=== PATIENT | female | born 1995 | race Caucasian/White ===

== ENCOUNTER 2016-10-29 20:35 | Inpatient (IN) | payer OTHER ==
[2016-10-29] MEDS ORDERED: NS 1,000 ML IV ONE ×3 (20:40→22:23)
--- NOTE | 2016-10-29 21:00 | EDPHY ---
H & P HPI/ROS: CHIEF COMPLAINT: Trauma HISTORY OF PRESENT ILLNESS: The patient is a 20-year-old female who comes to the emergency department after falling off for skateboard. Her friend states that she appeared to faint and then fall off of her skateboard without catching herself after which she had convulsions for up to 30 seconds. No known history of seizure. She is complaining of an abrasion to her left shoulder. She was able to ambulate for EMS and conversing. On arrival here she tells us to leave her alone and is not cooperative with exam. REVIEW OF SYSTEMS: Constitutional: denies: chills, fever, recent illness, recent injury EENTM: denies: blurred vision, double vision, nose congestion Respiratory: denies: cough, shortness of breath Cardiac: denies: chest pain, irregular heart rate, lightheadedness, palpitations Gastrointestinal/Abdominal: denies: abdominal pain, diarrhea, nausea, vomiting, blood streaked stools Genitourinary: denies: dysuria, frequency, hematuria, pain Musculoskeletal: denies: joint pain, muscle pain Skin: denies: lesions, rash, jaundice, bruising Neurological: denies: headache, numbness, paresthesia, tingling, dizziness, weakness Hematologic/Lymphatic: denies: blood clots, easy bleeding, easy bruising Immunologic/allergic: denies: HIV/AIDS, transplant Nursing assessment reviewed Vital signs reviewed normal Patient is somnolecent, answers questions, not cooperative c-collar in place, HEAD: shows no evidence of trauma no raccoon eyes, no Peñaloza sign. NECK: Unable to assess, trachea is midline, EYES: pupils equal round 4+ reactive to light and accommodating, extraocular muscles are intact no palsy or entrapment, no subconjunctival hemorrhage ENT: Abrasion to left side of forehead and cheek, small abrasion on upper lip, airway intact, no dental or oral injuries, no clotted nasal blood, no septal hematoma, no hemotympanum CARDIOVASCULAR: heart sounds normal, not tachycardic or bradycardic, Chest is non-tender no rib tenderness no palpable fracture, no crepitus, no subcutaneous emphysema RESPIRATORY: no splinting, no paradoxical movements, gross sounds normal, no wheezes no rales no rhonchi, no respiratory distress ABDOMEN: Abdomen is nontender in all 4 quadrants no guarding no rebound, no distention, no hernias, no masses or bruits. GENITAL/RECTAL: Normal external inspection, Stable pelvis NEUROLOGIC/PSYCH: Oriented x3, cranial nerves normal as assessed, face symmetrical, sensation normal, motor grossly normal, not perseverating, cranial nerves II through XII intact normal reflexes [place] Coma score: 13 EYES to voice 3 SPEECH disoriented 4 MOTOR normal 6 SKIN: Intact, warm, dry, no ecchymosis, no lacerations, nondiaphoretic. BACK: No CVA tenderness, no vertebral point tenderness, no muscle spasm normal range of motion EXTREMITIES: Abrasion to knuckles of both hands and left shoulder pelvis stable , but painful. no pulse deficit, normal range of motion, normal color and temperature Source: Patient Exam Limitations: No limitations - Medical/Surgical History Hx Asthma: No Hx Chronic Respiratory Disease: No Hx Diabetes: No Hx Cardiac Disease: No Hx Renal Disease: No Hx Cirrhosis: No Hx Alcoholism: No - Family History Significant Family History: No pertinent family hx - Social History Alcohol Use: Sober Drug Use: None Constitutional: Initial Vital Signs Temperature (C) 36.4 C 10/29/16 20:40 Heart Rate 98 10/29/16 20:40 Respiratory Rate 16 10/29/16 20:40 Blood Pressure 131/86 H 10/29/16 20:40 O2 Sat (%) 98 10/29/16 20:40 O2 Delivery Mode Room Air Allergies/Adverse Reactions: No Known Allergies Allergy (Unverified 10/29/16 22:19) Home Medications: Medication Instructions Recorded Citalopram [CeleXA] 20 mg PO DAILY 10/30/16 Norgestimate-Ethinyl Estradiol 1 each PO DAILY 10/30/16 [Sprintec] Medical Decision Making - Diagnostics Imaging: Discussed imaging studies w/ rn call center Radiologist Procedures: Intubation: emergent intubation. While manually bagging the patient and maintaining the airway, The patient was sedated with 20 mg of Etomidate and paralyzed with 100 mg of succinylcholine. A 7.5 endotracheal tube was placed using the Glidescope. It was placed at 21 cm at the teeth. Placement was confirmed by direct visualization, good color change, and bilateral breath sounds with absent gastric sounds. Chest x-ray is pending. Saturations improved significantly and the procedure was successful. ED Course/Re-evaluation: The patient's friend has arrived who was with her. He states that he was riding behind her on the long board when she seem to go limp and fall forward. She collapsed to the ground without catching herself. She then seized for about 30 seconds. He states that she was slightly confused when she woke but kept saying that her head hurt. 10:20 p.m. I spoke with Wilder Vega who is in a or and will have Dr. Garsia evaluate. He does recommend Keppra. 10:25 p.m. I discussed the case with Dr. Andrés Jhaveri who will admit to the ICU. Mom is in the room. She is a nurse and understands the plan. 10:57 p.m. the patient's GCS is declining. She is still maintaining airway. Dr. Jhaveri is evaluating and will order a repeat CT scan. Patient vomited and became incontinent. We intubated her. Differential Diagnosis: Partial list of the Differential diagnosis considered include but were not limited to; intracranial hemorrhage, concussion, cervical spine injury, abrasion and although unlikely based on the history and physical exam, I also considered torso injury, tumor. Critical Care Time: Critical care time spent by me, Dr. Bauer exclusive with this patient was 45 minutes, exclusive of the PA time exclusive of procedures. The organ system that was at risk was neurologic and I gave emergency workup, imaging, consultation and admission to prevent worsening of the patient's condition - Data Points Laboratory Results: Laboratory Results 10/29/16 21:00 10/29/16 21:00 Medications Given: Discontinued Medications Diazepam (Valium Injection) 5 mg IVP EDNOW ONE Stop: 10/29/16 23:26 Last Admin: 10/30/16 02:30 Dose: Not Given Etomidate (Etomidate) 20 mg IVP ONCE ONE Stop: 10/29/16 23:10 Last Admin: 10/29/16 23:10 Dose: 20 mg Sodium Chloride (Ns) 1,000 mls @ 0 mls/hr IV ONCE ONE PRN Reason: Wide Open Stop: 10/29/16 20:50 Last Admin: 10/29/16 21:05 Dose: 1,000 mls Levetiracetam 500 mg/ Sodium (Chloride) 105 mls @ 420 mls/hr IV EDNOW ONE Stop: 10/29/16 22:37 Last Admin: 10/29/16 22:55 Dose: 105 mls Sodium Chloride (Ns) 1,000 mls @ 0 mls/hr IV ONCE ONE PRN Reason: Wide Open Stop: 10/29/16 22:24 Last Admin: 10/29/16 22:25 Dose: 1,000 mls Ondansetron HCl (Zofran) 4 mg IVP EDNOW ONE Stop: 10/29/16 22:39 Last Admin: 10/29/16 22:40 Dose: 4 mg Propofol (Diprivan) 40 mg IVP EDNOW ONE Stop: 10/29/16 23:46 Last Admin: 10/29/16 23:45 Dose: 40 mg Succinylcholine Chloride (Quelicin) 100 mg IVP ONCE ONE Stop: 10/29/16 23:10 Last Admin: 10/29/16 23:11 Dose: 100 mg Departure - Departure Disposition: [facility] Acute Clinical Impression: Intracranial hemorrhage, Subdural hemorrhage Condition: Critical
[2016-10-29 21:43] LABS: % IMMATURE GRANULYOCYTES 0.4 % (0.0-1.1); ABSOLUTE IMMATURE GRANULOCYTES 0.05 10^3/uL (0.00-0.10); ADD DIFF? NO; ADD MORPH? NO; ADD SCAN? NO; ATYPICAL LYMPHOCYTE FLAG 10 (0-99); FRAGMENT RBC FLAG 0 (0-99); HEMATOCRIT 40.1 % (38.0-47.0); HEMOGLOBIN 14.3 g/dL (12.6-16.3); LEFT SHIFT FLG 0 (0-99); LIPEMIA HEMOLYSIS FLAG 90 (0-99); MEAN CELL HEMOGLOBIN 29.5 pg (27.9-34.1); MEAN CELL HEMOGLOBIN CONCENTR. 35.7 g/dL (32.4-36.7); MEAN CELL VOLUME 82.7 fL (81.5-99.8); MEAN PLATELET VOLUME 10.7 fL (8.7-11.7); PLATELET CLUMPS FLAG 10 (0-99); PLATELET COUNT 380 10^3/uL (150-400); RED BLOOD CELL COUNT 4.85 10^6/uL (4.18-5.33)
[2016-10-29 21:52] LABS: ANION GAP 12 mEq/L (8-16); CALCIUM 9.8 mg/dL (8.5-10.4); CARBON DIOXIDE 20 mEq/l (22-31); CHLORIDE 108 mEq/L (97-110); CREATININE 0.7 mg/dL (0.6-1.0); ETHANOL SERUM < 10 mg/dL (0-10); GLOMERULAR FILTRATION RATE > 60; GLUCOSE 116 mg/dL (70-100); POTASSIUM 3.6 mEq/L (3.5-5.2); SODIUM 140 mEq/L (134-144)
[2016-10-29 22:04] LABS: APTT 23.2 SEC (23.0-38.0); INR 0.99 (0.83-1.16)
[2016-10-29] MEDS ORDERED: ONDANSETRON 4 MG/2 ML VIAL ONE (22:17)
[2016-10-29] MEDS ORDERED: levETIRAcetam 500 MG in NS 100 ML IV ONE (22:23)
[2016-10-29] MEDS ORDERED: fentaNYL/NACL 100 ML IV SCH (22:30)
[2016-10-29] MEDS ORDERED: ONDANSETRON 4 MG/2 ML VIAL IVP ONE (22:38)
[2016-10-29] MEDS ORDERED: NALOXONE HCL 0.4 MG/ML INJ IVP PRN (23:06)
[2016-10-29] MEDS ORDERED: LORazepam 2 MG/ML INJ IVP PRN (23:06)
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
[2016-10-29] MEDS ORDERED: PROPOFOL/EMULSION 1,000 MG/100 ML BOTTLE IV ONE (23:07)
[2016-10-29] MEDS ORDERED: SUCCINYLCHOLINE CHLORIDE 200 MG/10 ML VIAL IVP ONE (23:09)
[2016-10-29] MEDS ORDERED: ETOMIDATE 20 MG/10 ML VIAL IVP ONE (23:09)
[2016-10-29] MEDS ORDERED: PROPOFOL/EMULSION 100 ML IV SCH (23:20)
[2016-10-29] MEDS ORDERED: DIAZEPAM 10 MG/2 ML SYR IVP ONE (23:25)
[2016-10-29] MEDS ORDERED: DIAZEPAM 10 MG/2 ML SYR ONE (23:27)
[2016-10-29] MEDS ORDERED: NOREPINEPHRINE/NS 500 ML IV SCH (23:30)
[2016-10-29] MEDS ORDERED: PROPOFOL 200 MG/20 ML VIAL IVP ONE (23:45)
[2016-10-30] MEDS ORDERED: ETOMIDATE 40 MG/20 ML INJ ONE (00:01)
[2016-10-30] MEDS ORDERED: SUCCINYLCHOLINE CHLORIDE*ANESTHESIA ONLY*200 MG/10 ML SYR IVP ONE (00:02)
[2016-10-30] MEDS ORDERED: fentanYL/NACL/100 ML BAG IV ONE (01:00)
[2016-10-30] MEDS ORDERED: PROPOFOL/EMULSION 1,000 MG/100 ML BOTTLE IV ONE (01:00)
[2016-10-30 01:35] LABS: CALCULATED OXYGEN SATURATION 100 % (92-95); O2 CONCENTRATIION 100 % (0-100)
[2016-10-30] MEDS: FAMOTIDINE 20 MG/NACL 50 ML IV SCH ×3 (02:30→20:52)
[2016-10-30] MEDS: PROPOFOL/EMULSION 100 ML IV SCH ×2 (02:31→07:04)
[2016-10-30 03:08] LABS: CALCULATED OXYGEN SATURATION 100 % (92-95); O2 CONCENTRATIION 50 % (0-100)
--- NOTE | 2016-10-30 03:09 | SOAPPROG ---
Downtime Inpatient MD Late Entry SOAP Note: Initial ABG shows pC02 of 27/discussed with patients ERINN Clayton will decrease tidal vol/rate and repeat ABG. We discussed target range for pC02 of 35-40.
[2016-10-30 03:54] LABS: BASE EXCESS -5.1 mEq/L (-2.5-2.5); BICARBONATE 20 mEq/L (22-26); MEASURED OXYGEN SATURATION 99 % (92-95); PCO2 39 mmHg (34-38); PO2 149 mmHg (65-75); TCO2 21 mEq/L (23-27)
[2016-10-30 03:55] LABS: END TIDAL CO2 63; O2 CONCENTRATIION 40 % (0-100); P/F RATIO 373 RATIO; PATIENT RATE 10; PRESSURE SUPPORT 7; SIMV YES
[2016-10-30 06:19] LABS: ANION GAP 8 mEq/L (8-16); CALCIUM 8.3 mg/dL (8.5-10.4); CARBON DIOXIDE 22 mEq/l (22-31); CHLORIDE 109 mEq/L (97-110); CREATININE 0.6 mg/dL (0.6-1.0); GLOMERULAR FILTRATION RATE > 60; GLUCOSE 110 mg/dL (70-100); SODIUM 139 mEq/L (134-144)
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
[2016-10-30] MEDS: BACITRACIN ZINC 14.2 GM OINTTUBE TP SCH ×2 (08:14→20:52)
[2016-10-30] MEDS: levETIRAcetam 500 MG in NS 100 ML IV SCH ×2 (08:46→20:52)
[2016-10-30 08:56] LABS: BICARBONATE 21 mEq/L (22-26); MEASURED OXYGEN SATURATION 99 % (92-95); PCO2 41 mmHg (34-38); PO2 157 mmHg (65-75); TCO2 22 mEq/L (23-27)
[2016-10-30 08:57] LABS: O2 CONCENTRATIION 40 % (0-100); P/F RATIO 393 RATIO; PATIENT RATE 17; PRESSURE SUPPORT 7; SIMV YES
--- NOTE | 2016-10-30 09:18 | SOAPPROG ---
SOAP Progress Note Assessment/Plan: Assessment: 20 y/o with CHI, small SDH, small contusions and decline in mental status. Ventriculostomy placed last pm -ICP 12-14 overnight, ventric functioning open at 10 -repeat CT this morning stable -exam improved ok to wean to extubate per trauma -Continue Q1 hour neuro checks, wean sedation as tolerated -call for change in neuro status 10/30/16 09:19 Subjective: Exam improved, Will follow commands briskly when sedation off, no new events overnight Objective: Vital Signs Temp Pulse Resp BP Pulse Ox 38.3 C 68 14 112/45 L 100 10/30/16 09:00 10/30/16 09:00 10/30/16 09:00 10/30/16 09:00 10/30/16 09:00 Laboratory Results 10/30/16 05:45 10/29/16 10/30/16 10/31/16 05:59 05:59 05:59 Intake Total 592 Output Total 954 75 Balance -362 -75 PT 13.0 SEC (12.0-15.0) 10/29/16 21:00 INR 0.99 (0.83-1.16) 10/29/16 21:00 sedated, PERRL, no facial asymmetry, briskly localizes bilateally, per nursing will briskly follow commands when sedation fully weaned, MAEWx 4, ventric c/d/i - Pending Discharge Pending Discharge Within 24 Hours: No Pending Discharge Within 48 Hours: No ICD10 Worksheet Patient Problems: Problems Problem Status Onset Intracranial hemorrhage Acute Subdural hemorrhage Acute
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
--- NOTE | 2016-10-30 14:14 | GCON ---
[f rep st] CONSULTATION PULMONARY/CRITICAL CARE CONSULTATION DATE OF CONSULTATION: 10/30/2016 REFERRING PHYSICIAN: Andrés Jhaveri MD REASON FOR REFERRAL: Evaluation and management of acute respiratory failure requiring intubation an d mechanical ventilation. HISTORY: The patient is a 20-year-old woman, who was brought into the emergency department followin g a skateboarding accident. She was apparently unhelmeted and had a loss of consciousness after the accident. History taken from her boyfriend who witnessed her fall, suggests that she may have lost consciousness prior to the accident. Upon arrival to the emergency department, she was found to de leon ve a [place] Coma Scale of 13 and had an occipital fracture and right subdural. In the emergency de partment, she had an episode of vomiting and fecal incontinence, as well as decline in mental status . She was then intubated due to inability to protect her airway. A ventriculostomy drain was place d by Dr. Coelho. PAST MEDICAL HISTORY: History of depression. MEDICATIONS: At the time of admission include possibly Paxil and oral contraceptives. ALLERGIES: None. 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 Her mother is an RN. She does not smoke, drink, or us e other drugs. FAMILY HISTORY: Unremarkable. REVIEW OF SYSTEMS: Unobtainable. PHYSICAL EXAMINATION: GENERAL: The patient is intubated. She was sedated with propofol and fentan yl but those have been discontinued and she is starting to wake up. She follows some simple command s but is not very persistent. VITAL SIGNS: Blood pressure is 114/48 with a heart rate of 68. She is afebrile. Oxygen saturations are 95% to 100%. HEENT: The patient has some ecchymoses, as well as ventriculostomy drain. Gaze is conjugate. NECK: A hard cervical collar is in place. CHEST: Cl ear to auscultation. CARDIAC: Regular rate and rhythm without murmur. ABDOMEN: Soft, nontender. Bowel sounds are present. EXTREMITIES: No clubbing, cyanosis, or edema. She has some abrasions o n her hands. NEUROLOGIC: The patient is sedated but arousable and follows simple commands. She is able to move all extremities. LABORATORY DATA: Chemistry group is normal. Beta hCG is negative. CBC is remarkable for a white b lood count of 13.9. An arterial blood gas shows a pH of 7.33 with a pO2 of 157,a CO2 of 41, and a b icarbonate of 22 on IMV at a rate of 12 with an actual rate of 17, a tidal volume of 450 and 40% oxy gen. Ethyl alcohol level is less than 10. Chest x-ray shows some possible left basilar edema/atelectasis. The endotracheal tube is in the david ropriate position. Images reviewed. CT scan of the head from October 29 shows a nondisplaced occipital skull fracture with a subarachnoid he morrhage and a tiny subdural hematoma on the right. This is stable on subsequent imaging. Images r eviewed. ASSESSMENT: 1. Acute respiratory failure. This is due to altered mental status and inability to protect her ai rway. The patient appears to have improved, and she has come off sedation. 2. Intracranial hemorrhage, status post ventriculostomy drain. 3. Occipital skull fracture. PLAN: 1. We will check weaning parameters and consider extubation. 2. Continue with tracheostomy drain per Dr. Coelho. 3. Speech therapy for cognitive and swallow evaluations once the patient is extubated. /[id number]/MODL
[2016-10-30] MEDS: ONDANSETRON 4 MG/2 ML VIAL IVP PRN (15:54)
[2016-10-30 16:07] LABS: ANION GAP 8 mEq/L (8-16); CALCIUM 8.7 mg/dL (8.5-10.4); CARBON DIOXIDE 22 mEq/l (22-31); CHLORIDE 109 mEq/L (97-110); CREATININE 0.6 mg/dL (0.6-1.0); GLOMERULAR FILTRATION RATE > 60; GLUCOSE 114 mg/dL (70-100); POTASSIUM 3.9 mEq/L (3.5-5.2); SODIUM 139 mEq/L (134-144)
[2016-10-30] MEDS: NS 1,000 ML IV SCH (17:32)
[2016-10-30 23:21] LABS: ANION GAP 7 mEq/L (8-16); CALCIUM 8.6 mg/dL (8.5-10.4); CARBON DIOXIDE 21 mEq/l (22-31); CHLORIDE 109 mEq/L (97-110); CREATININE 0.5 mg/dL (0.6-1.0); GLOMERULAR FILTRATION RATE > 60; GLUCOSE 110 mg/dL (70-100); SODIUM 137 mEq/L (134-144)
--- NOTE | 2016-10-31 07:30 | NEUSURGPN ---
Assessment/Plan: Assessment: 20 y/o with CHI, small SDH, small contusions and decline in mental status. Ventriculostomy placed -ICP running about 12-15 overnight, ventric functioning open at 10 -repeat CT yesterday was stable -extubated -Continue Q1 hour neuro checks -PT/OT/ELECTRIC POWERLINE EXAMINER, encourage up and OOB -D/w Dr Coelho -call for change in neuro status Subjective: Pt resting in bed, boyfriend at bedside. Sleeping but awakens easily. Objective: NAD VSS oriented to person, place, time - thought today was sunday MAEx4 No droop EOMi Motor / BUE/BLE Follows all commands Ventric catheter in place cdi Urinary Catheter in Place: Yes Urinary Catheter Indication: Other (Use Comment) (to be removed today once ambulatory) Catheter Insertion Date: 10/30/16 - Physician Discussed Patient with : Meliton Neurosurgery Physical Exam - Vitals, I&O, Labs I and O 10/30/16 10/31/16 11/01/16 05:59 05:59 05:59 Intake Total 592 2358 Output Total 954 1698 30 Balance -362 660 -30 Weight 68 kg Intake: IV Infused (ml) 592 2358 Famotidine 20 mg/NaCl 50 50 ml @ 200 mls/hr IV Q12HRS JIMMY Rx#:[id number] Ns 1,000 ml @ 100 mls/hr 360 2150 IV CONT JIMMY Rx#: [id number] Propofol/Emulsion 100 ml 128 73 @ Titrate IV CONT JIMMY Rx# :[id number] fentaNYL/NACL 100 ml @ 54 30 Per Protocol IV CONT JIMMY Rx#:[id number] levETIRAcetam 500 mg In 105 Ns 100 ml @ 420 mls/hr IV BID JIMMY Rx#:[id number] Output: Urine (ml) 800 1300 Catheter 800 1300 OG Drainage (ml) 100 Large Bore (>12 Dutch) 100 Non-weighted Stomach CSF Drainage Amount 54 398 30 Right Ventriculostomy 54 398 30 Other: Number of Stools Catheter 1 Vital Signs Temp Pulse Resp BP Pulse Ox 38.0 C 57 L 18 124/56 H 92 10/31/16 07:00 10/31/16 07:00 10/31/16 07:00 10/31/16 07:00 10/31/16 07:00 Laboratory Results 10/30/16 22:10 ICD10 Worksheet Patient Problems: Problems Problem Status Onset Intracranial hemorrhage Acute Subdural hemorrhage Acute
[2016-10-31] MEDS: levETIRAcetam 500 MG in NS 100 ML IV SCH ×2 (08:33→20:36)
[2016-10-31] MEDS: BACITRACIN ZINC 14.2 GM OINTTUBE TP SCH ×2 (08:34→20:12)
[2016-10-31] MEDS: FAMOTIDINE 20 MG/NACL 50 ML IV SCH ×2 (08:34→20:11)
[2016-10-31] MEDS: NS 1,000 ML IV SCH ×2 (08:39→23:17)
--- NOTE | 2016-10-31 09:35 | PDINTPN ---
[employer] Tm[employer] Developer Progress Note Assessment/Plan: Assessment/Plan: * Status post closed head injury-intercranial hemorrhage -continue ventriculostomy * Acute respiratory failure-extubated in stable off mechanical ventilation. * Occipital skull fracture * Syncopal episode-unclear etiology -check echo * Mental status-awakens easily. Following simple commands. * Nutrition-none currently Case discussed with family and nursing. Subjective: Awakens-following simple commands. Objective: Vital Signs Temp Pulse Resp BP Pulse Ox 38.0 C 57 L 18 124/56 H 92 10/31/16 07:00 10/31/16 07:00 10/31/16 07:00 10/31/16 07:00 10/31/16 07:00 Laboratory Results 10/30/16 22:10 10/30/16 10/31/16 11/01/16 05:59 05:59 05:59 Intake Total 592 2358 Output Total 954 1698 30 Balance -362 660 -30 PT 13.0 SEC (12.0-15.0) 10/29/16 21:00 INR 0.99 (0.83-1.16) 10/29/16 21:00 Physical Exam - Physical Exam General Appearance: other (Drowsy) EENT: PERRL/EOMI Neck: non-tender, supple Respiratory: chest non-tender, lungs clear, normal breath sounds Cardiac/Chest: normal peripheral pulses, regular rate, rhythm Peripheral Pulses: 2+: carotid (R), carotid (L), femoral (R), femoral (L), dorsalis-pedis (R), dorsalis-pedis (L) Abdomen: normal bowel sounds, non-tender, soft Pelvic Exam: deferred Rectal: deferred Skin: normal color, warm/dry ICD10 Worksheet Patient Problems: Problems Problem Status Onset Intracranial hemorrhage Acute Subdural hemorrhage Acute
--- NOTE | 2016-10-31 11:34 | ECHO ---
[id number] + + [address] : : [place] [address] : : [phone] + + Adult Echocardiographic Report + ---+ :Name: Madeline MAHAJAN Date: 10/31/2016 10:08 AM : : Hospital Admission Number: [id number] Location: 251: :: 1995 Gender: Female Height: 64 in : :Age: 21 yrs Race: PTNP Weight: 149 lb : :Reason For Study: Syncope : : BSA: 1.7 meters2 : + ---+ MMode/2D Measurements \T\ Calculations IVSd: 0.98 cm LVIDd: 4.5 cm FS: 41.0 % Ao root diam: LVPWd: 0.70 cm LVIDs: 2.7 cm EDV(Teich): 2.8 cm 94.3 ml LA dimension: ESV(Teich): 3.7 cm 26.5 ml EF(Teich): 71.9 % LVLd ap4: 7.7 cm SV(MOD-sp4): EDV(MOD-sp4): 63.0 ml 87.0 ml LVLs ap4: 6.2 cm ESV(MOD-sp4): 24.0 ml EF(MOD-sp4): 72.4 % Normal Measurement Values: + + :LVIDd (3.5-5.7cm) IVSd (0.6-1.1cm) LVPWd (0.6-1.1cm) Aortic Root (2.0-3.7cm)Left Atrium (1.5-4.0cm): :LV Vol(d) (76-115ml) LV Vol(s) (29-48ml) Ejec Fraction (50-65%)PV Edmond (0.6- 1.2m/s) TV Edmond (0.4-1.0m/s) : :MV E Edmond (0.8-1.0m/s)MV A Edmond (0.3-1.0m/s)LVOT Edmond (0.7-1.2m/s) Asc Ao Edmond ( 0.9-1.8m/s) : + + Doppler Measurements \T\ Calculations MV E max edmond: 118.5 cm/sec Ao V2 max: 175.1 cm/sec TR max edmond: 209.0 cm/sec MV A max edmond: 38.5 cm/sec Ao max P.3 mmHg TR max P.5 mmHg MV E/A: 3.1 RAP systole: 5.0 mmHg RVSP(TR): 22.5 mmHg Left Ventricle The left ventricle is normal in size and function. There is normal left ventricular wall thickness. Left ventricular systolic function is normal. Ejection Fraction = 65-70%. No regional wall motion abnormalities noted. Right Ventricle The right ventricle is normal in size and function. Atria The left atrial size is normal. Right atrial size is normal. The interatrial septum is intact with no evidence for an atrial septal defect. Mitral Valve The mitral valve is normal in structure and function. There is no evidence of mitral valve prolapse. There is no mitral valve stenosis. There is trace mitral regurgitation. Tricuspid Valve Normal tricuspid valve. There is trace to mild tricuspid regurgitation. Aortic Valve The aortic valve is trileaflet. The aortic valve opens well. There is no aortic stenosis. There is no aortic insufficiency. Pulmonic Valve The pulmonic valve is normal in structure and function. There is no pulmonic valvular regurgitation. Great Vessels The aortic root is normal size. Pericardium/Pleural There is no pericardial effusion. Conclusion A complete two-dimensional transthoracic echocardiogram was performed (2D, M-mode, Doppler and color flow Doppler). The left ventricle is normal in size and function. Left ventricular systolic function is normal. Ejection Fraction = 65-70%. There is trace mitral regurgitation. There is trace to mild tricuspid regurgitation. Final Reading Physician: Mary Gallardo signed on 10/31/2016 11:32 AM Ordering Physician: Roland Dumont Performed By: Meliza Martin, CS
--- NOTE | 2016-10-31 11:58 | TRAUMAPN ---
Assessment/Plan: 21 yo s/p abrupt fall on skateboard without inciting event Occipital skull fracture Right tempoeroparietal SDH and SAH Continue Cody Tried to clamp ventric this am but got headache Dangled with PT Somulent Swallow eval today No additional injuries noted Minor abrasions S: Lethargic Objective: Vital Signs Temp Pulse Resp BP Pulse Ox 37.7 C 58 L 15 105/54 L 98 10/31/16 11:00 10/31/16 11:00 10/31/16 11:00 10/31/16 11:00 10/31/16 11:00 Laboratory Results 10/30/16 22:10 10/30/16 10/31/16 11/01/16 05:59 05:59 05:59 Intake Total 592 2358 Output Total 954 1698 325 Balance -362 660 -325 PT 13.0 SEC (12.0-15.0) 10/29/16 21:00 INR 0.99 (0.83-1.16) 10/29/16 21:00 - C-Spine Clearance Cervical Spine Cleared: No Physical Exam - Physical Exam General Appearance: WD/WN, no apparent distress, other (lethargic) EENT: pharynx normal, other (ventric in place) Respiratory: lungs clear, normal breath sounds Cardiac/Chest: regular rate, rhythm Abdomen: normal bowel sounds, non-tender, soft Skin: other (minor abrasions) Extremities: normal range of motion
[2016-10-31] MEDS: ACETAMINOPHEN 325 MG TAB PO PRN (18:40)
[2016-10-31] MEDS ORDERED: BACITRACIN OINTMENT 1 PACKET TP ONE (19:34)
[2016-11-01] MEDS: ACETAMINOPHEN 325 MG TAB PO PRN ×4 (01:59→23:54)
[2016-11-01 04:23] LABS: HEMATOCRIT 31.4 % (38.0-47.0); HEMOGLOBIN 10.8 g/dL (12.6-16.3); MEAN CELL HEMOGLOBIN 29.5 pg (27.9-34.1); MEAN CELL HEMOGLOBIN CONCENTR. 34.4 g/dL (32.4-36.7); MEAN CELL VOLUME 85.8 fL (81.5-99.8); RED BLOOD CELL COUNT 3.66 10^6/uL (4.18-5.33); RED CELL DISTRIBUTION WIDTH 11.9 % (11.5-15.2)
[2016-11-01 04:53] LABS: ANION GAP 6 mEq/L (8-16); CALCIUM 8.6 mg/dL (8.5-10.4); CARBON DIOXIDE 23 mEq/l (22-31); CHLORIDE 109 mEq/L (97-110); CREATININE 0.5 mg/dL (0.6-1.0); GLOMERULAR FILTRATION RATE > 60; GLUCOSE 83 mg/dL (70-100); POTASSIUM 4.1 mEq/L (3.5-5.2); SODIUM 138 mEq/L (134-144)
--- NOTE | 2016-11-01 07:55 | SOAPPROG ---
SOAP Progress Note Assessment/Plan: Assessment: 20 y/o with CHI, small SDH, small contusions and decline in mental status in ED. Ventriculostomy placed -currently awake and alert. doing well -ICP running about 12-15 overnight, ventric functioning open at 10 -repeat CT was stable Plan: Continue Q1 hour neuro checks Will try to reclamp ventric this AM. -PT/OT/TUBER HELPER, encourage up and OOB - DC Chan and advance diet -D/w Dr Coelho -call for change in neuro status Subjective: awake, alert, has MONTILLA 11/11. using only Tylenol mother present Objective: Vital Signs Temp Pulse Resp BP Pulse Ox 37.3 C 51 L 14 125/68 H 92 11/01/16 07:00 11/01/16 07:00 11/01/16 07:00 11/01/16 07:00 11/01/16 07:00 Laboratory Results 11/01/16 04:13 11/01/16 04:13 10/31/16 11/01/16 11/02/16 05:59 05:59 05:59 Intake Total 2358 2692 Output Total 1698 2420 22 Balance 660 272 -22 PT 13.0 SEC (12.0-15.0) 10/29/16 21:00 INR 0.99 (0.83-1.16) 10/29/16 21:00 Neuro: PERRLA,EOMI Speech clear and fluent no droop, no pronator drift equal strength,follows commands ICP: 12 ventric working well ICD10 Worksheet Patient Problems: Problems Problem Status Onset Intracranial hemorrhage Acute Subdural hemorrhage Acute
[2016-11-01] MEDS: levETIRAcetam 500 MG in NS 100 ML IV SCH (08:42)
[2016-11-01] MEDS: FAMOTIDINE 20 MG/NACL 50 ML IV SCH (08:42)
[2016-11-01] MEDS: BACITRACIN ZINC 14.2 GM OINTTUBE TP SCH ×2 (08:43→21:26)
--- NOTE | 2016-11-01 09:21 | PDINTPN ---
Radial Router Operator Progress Note Assessment/Plan: Assessment/Plan: * Status post closed head injury-intercranial hemorrhage -continue ventriculostomy * Acute respiratory failure-resolved * Occipital skull fracture * Syncopal episode-unclear etiology -echo normal * Mental status-awake and alert today. * Nutrition-none currently Case discussed with family and nursing. Subjective: Complains of mild headache. Patient is currently awake and alert and conversant. Objective: Vital Signs Temp Pulse Resp BP Pulse Ox 37.4 C 46 L 14 133/74 H 95 11/01/16 08:00 11/01/16 09:00 11/01/16 09:00 11/01/16 09:00 11/01/16 09:00 Laboratory Results 11/01/16 04:13 11/01/16 04:13 10/31/16 11/01/16 11/02/16 05:59 05:59 05:59 Intake Total 2358 2692 Output Total 1698 2420 577 Balance 660 272 -577 PT 13.0 SEC (12.0-15.0) 10/29/16 21:00 INR 0.99 (0.83-1.16) 10/29/16 21:00 Physical Exam - Physical Exam General Appearance: alert, no apparent distress EENT: PERRL/EOMI Neck: non-tender, full range of motion, supple, normal inspection Respiratory: chest non-tender, lungs clear, normal breath sounds Cardiac/Chest: normal peripheral pulses, regular rate, rhythm Peripheral Pulses: 2+: carotid (R), carotid (L), femoral (R), femoral (L), dorsalis-pedis (R), dorsalis-pedis (L) Abdomen: normal bowel sounds, non-tender, soft Pelvic Exam: deferred Rectal: deferred Skin: normal color, warm/dry Extremities: normal range of motion, non-tender, normal inspection, normal capillary refill ICD10 Worksheet Patient Problems: Problems Problem Status Onset Intracranial hemorrhage Acute Subdural hemorrhage Acute
--- NOTE | 2016-11-01 12:16 | TRAUMAPN ---
- Problem/Surgery Performed (1) Fall from skateboard, initial encounter Assessment/Plan: hemodynamically stable with unexpected drop in H/H will monitor Qualifiers: Encounter type: E (2) Intracranial hemorrhage Assessment/Plan: clinically improved/not tolerant of ventriculostomy clamping (3) Subdural hemorrhage Assessment/Plan: stable on sequential CT Subjective: awake/alert, mother and boyfriend at bedside Objective: Vital Signs Temp Pulse Resp BP Pulse Ox 37.4 C 44 L 15 141/76 H 94 11/01/16 08:00 11/01/16 12:00 11/01/16 12:00 11/01/16 12:00 11/01/16 12:00 Laboratory Results 11/01/16 04:13 11/01/16 04:13 10/31/16 11/01/16 11/02/16 05:59 05:59 05:59 Intake Total 2358 2692 Output Total 1698 2420 1001 Balance 660 272 -1001 PT 13.0 SEC (12.0-15.0) 10/29/16 21:00 INR 0.99 (0.83-1.16) 10/29/16 21:00 - C-Spine Clearance Cervical Spine Cleared: No Physical Exam - Physical Exam General Appearance: alert, mild distress Respiratory: chest non-tender, lungs clear, normal breath sounds Cardiac/Chest: regular rate, rhythm, bradycardia Abdomen: normal bowel sounds, non-tender, soft Skin: normal color, warm/dry Neuro/Psych: alert, oriented x 3 Time Spent w/Patient (minutes): 20
--- NOTE | 2016-11-01 17:41 | GCON ---
[f rep st] CONSULTATION INTERNAL MEDICINE CONSULTATION REFERRING PHYSICIAN: Dr. Dumont REASON FOR CONSULTATION: Evaluate for possible syncope. HISTORY OF PRESENT ILLNESS: This is a 21-year-old female who was admitted as a full trauma activati on on 10/29/2016. She was skateboarding and her boyfriend was behind her. Apparently, it appeared that she had slumped over and then fell. She did not fall on outstretched hands and the suspicion i s that she had a syncopal episode prior to falling. The patient herself does not remember this. Otilia suggs did lose consciousness. She was unconscious when he caught up with her and there was some convuls marek activity. She came in as a full trauma and had a small right frontal subdural hematoma and some traumatic subarachnoid hemorrhage. She was intubated initially and ICP drain and monitor was place d. She has been extubated. She currently complains of some headache. She is somnolent at times, a lthough she is able to answer questions currently. Patient does admit that she has heart palpitations, actually fairly frequently. She would say about once a week and they come on suddenly. She has thought it is a possibility that this was due to an xiety, but it does not always happen when she is anxious. She does not feel dizzy with these episod es. They sometimes feel like she does have irregular heartbeat with some pausing. She has not had any syncopal episodes prior to this. REVIEW OF SYSTEMS: A 10-point review of systems was obtained and was otherwise negative. PAST MEDICAL HISTORY: Anxiety. MEDICATIONS: Prior to hospitalization was oral contraception and Celexa. SOCIAL HISTORY: No smoking. A student at . FAMILY HISTORY: I do not believe there is any sudden in the family at early ages. PHYSICAL EXAMINATION: VITAL SIGNS: Afebrile. Blood pressure is in the 140s, heart rates are actua lly fairly low in the 40s to 50s, oxygen saturation 95% on room air. GENERAL: The patient is well developed, no apparent distress. HEENT: Nonicteric sclerae. Extraocular movements intact. Moist mucous membranes. NECK: Supple. No thyromegaly. LUNGS: Good effort. Clear to auscultation bila terally. CARDIOVASCULAR: Regular rate and rhythm. No murmurs, rubs, or gallops. ABDOMEN: Positi ve bowel sounds. Soft, nontender, nondistended. No hepatosplenomegaly. EXTREMITIES: No clubbing, cyanosis, or edema. SKIN: Without rash. Warm, dry, intact. NEUROLOGIC: A little bit somnolent, but has good strength in all 4 extremities. LABORATORIES: White count slightly elevated at 11, hemoglobin is 10. Chemistry is essentially norm al. Recent CT scan done today shows no change in small subdural hematoma. Echocardiogram shows normal EF and ventricular size with just some trace mitral regurgitation. Telemetry is personally reviewed and interpreted and there are definitely some times where heart rat e does go up. This appears to be like sinus rhythm, but there are times where it looked like SVT. ASSESSMENT: This is a 21-year-old female who possibly has syncopal episode causing a traumatic brai n injury. PLAN: 1. Possible syncope. Syncope is a strong possibility in this patient according to the history and the type of injury that she had. She does endorse symptoms of palpitations, but has not had a previ ous syncopal episode. Echocardiogram is reassuringly normal. However, on telemetry I am seeing blossom e abnormalities that could be a sinus rhythm arrhythmia, but it could also be SVT. I have asked our EP terrazzo worker to see the patient and look at her strips. She most likely will need some type of Holter monitoring outpatient. 2. The other possibility would be seizure and she did have convulsive activity after her fall, whic h could just be from syncope and head the injury. EEG when she is more stable could also be conside red. Thank you for this consultation, and we will follow along with you. /[id number]/MODL
[2016-11-01] MEDS ORDERED: MAGNESIUM HYDROXIDE 30 ML UDCUP PO PRN (18:09)
[2016-11-01] MEDS ORDERED: LACTULOSE 20 GM/30 ML UDCUP PO PRN (18:09)
[2016-11-01] MEDS: ONDANSETRON 4 MG/2 ML VIAL IVP PRN ×2 (19:33→23:55)
[2016-11-01] MEDS: FAMOTIDINE 20 MG TAB PO SCH (21:05)
[2016-11-01] MEDS: SENNOSIDES/DOCUSATE SODIUM TAB PO SCH (21:06)
[2016-11-01] MEDS: levETIRAcetam 500 MG TAB PO SCH (21:06)
[2016-11-02] MEDS: ONDANSETRON 4 MG/2 ML VIAL IVP PRN ×2 (04:13→10:13)
[2016-11-02 04:53] LABS: % IMMATURE GRANULYOCYTES 0.4 % (0.0-1.1); ABSOLUTE IMMATURE GRANULOCYTES 0.05 10^3/uL (0.00-0.10); ADD DIFF? NO; ADD MORPH? NO; ADD SCAN? NO; ATYPICAL LYMPHOCYTE FLAG 20 (0-99); FRAGMENT RBC FLAG 0 (0-99); HEMATOCRIT 33.5 % (38.0-47.0); HEMOGLOBIN 11.8 g/dL (12.6-16.3); LEFT SHIFT FLG 0 (0-99); LIPEMIA HEMOLYSIS FLAG 90 (0-99); MEAN CELL HEMOGLOBIN 29.9 pg (27.9-34.1); MEAN CELL HEMOGLOBIN CONCENTR. 35.2 g/dL (32.4-36.7); MEAN CELL VOLUME 84.8 fL (81.5-99.8); MEAN PLATELET VOLUME 10.5 fL (8.7-11.7); PLATELET CLUMPS FLAG 0 (0-99); PLATELET COUNT 324 10^3/uL (150-400); RED BLOOD CELL COUNT 3.95 10^6/uL (4.18-5.33); RED CELL DISTRIBUTION WIDTH 11.8 % (11.5-15.2)
[2016-11-02] MEDS: BACITRACIN ZINC 14.2 GM OINTTUBE TP SCH ×2 (08:08→21:27)
[2016-11-02] MEDS: levETIRAcetam 500 MG TAB PO SCH ×2 (08:08→21:28)
[2016-11-02] MEDS: SENNOSIDES/DOCUSATE SODIUM TAB PO SCH ×2 (08:09→21:28)
[2016-11-02] MEDS: ACETAMINOPHEN 325 MG TAB PO PRN ×3 (08:09→21:27)
[2016-11-02] MEDS: FAMOTIDINE 20 MG TAB PO SCH ×2 (08:09→21:27)
--- NOTE | 2016-11-02 08:27 | NEUSURGPN ---
Assessment/Plan: Assessment: 20 y/o with CHI, small SDH, small contusions and decline in mental status in ED. Ventriculostomy placed Plan: -currently awake and alert. doing well -ICP running about 14-20 overnight, ventric functioning open at 20 -repeat CT was stable yesterday -Continue Q1 hour neuro checks -Will try to reclamp ventric this AM. -PT/OT/SPEECH LANGUAGE SPECIALIST, encourage up and OOB -Pt seen and D/w Dr Coelho -call for change in neuro status Subjective: Pt resting in bed, family at bedside. Doing well overall. Objective: AAOx3 NAD VSS MAEx4 Motor 5/5 BUE/BLE Ventric site cdi +LT Urinary Catheter in Place: No Catheter Insertion Date: 10/30/16 - Physician Discussed Patient with : Meliton Patient Seen by : Meliton Neurosurgery Physical Exam - Vitals, I&O, Labs I and O 11/01/16 11/02/16 11/03/16 05:59 05:59 05:59 Intake Total 2692 1081 Output Total 2420 2856 271 Balance 272 -9330 -271 Intake: Oral (ml) 60 670 IV Infused (ml) 2632 411 Famotidine 20 mg/NaCl 50 50 ml @ 200 mls/hr IV Q12HRS JIMMY Rx#:[id number] Ns 1,000 ml @ 100 mls/hr 2482 411 IV CONT JIMMY Rx#: [id number] levETIRAcetam 500 mg In 100 Ns 100 ml @ 420 mls/hr IV BID JIMMY Rx#:[id number] Output: Urine (ml) 2110 2700 250 Bedside Commode 0 250 Catheter 2110 400 Toilet 250 CSF Drainage Amount 310 156 21 Right Ventriculostomy 310 156 21 Other: Number of Voids Toilet 1 Vital Signs Temp Pulse Resp BP Pulse Ox 37 C 62 14 120/72 94 11/02/16 08:00 11/02/16 08:00 11/02/16 08:00 11/02/16 08:00 11/02/16 08:00 Laboratory Results 11/02/16 04:18 11/01/16 04:13 ICD10 Worksheet Patient Problems: Problems Problem Status Onset Fall from skateboard, initial encounter Acute Intracranial hemorrhage Acute Subdural hemorrhage Acute
--- NOTE | 2016-11-02 08:54 | TRAUMAPN ---
Assessment/Plan: HD#5 s/p fall c occipital skull fx, R temporoparietal SDH/SAH, ventric in place (clamped) Neuro: Still c/o MONTILLA but this is felt to be more likely 2/2 concussion. ventric clamped today. Tylenol as needed, added oxycodone PRN as well. Hopefully will d/ c ventric tomorrow. Cont keppra Pulm: BARRERA, lungs clear on exam this AM. CV: HDS Abd: soft, ND, NT. Denies bowel function Renal: Voiding, UOP appropriate Hb: Heme stable, no pharmcologic proph, SCDs in place ID: Afebrile, WBC up to 12 from 11, likely reactive. Will monitor Dispo: Ventric clamped, will hopefully d/c 24hrs. No new findings on exam this AM Subjective: Resting, still c/o MONTILLA Objective: Vital Signs Temp Pulse Resp BP Pulse Ox 37 C 62 14 120/72 94 11/02/16 08:00 11/02/16 08:00 11/02/16 08:00 11/02/16 08:00 11/02/16 08:00 Laboratory Results 11/02/16 04:18 11/01/16 04:13 11/01/16 11/02/16 11/03/16 05:59 05:59 05:59 Intake Total 2692 1081 Output Total 2420 2856 271 Balance 272 -1775 -271 PT 13.0 SEC (12.0-15.0) 10/29/16 21:00 INR 0.99 (0.83-1.16) 10/29/16 21:00 - C-Spine Clearance Cervical Spine Cleared: Yes Physical Exam - Physical Exam General Appearance: alert, no apparent distress EENT: PERRL/EOMI, No scleral icterus (L) Neck: non-tender, full range of motion Respiratory: chest non-tender, lungs clear Cardiac/Chest: regular rate, rhythm Abdomen: normal bowel sounds, non-tender Back: Normal inspection Skin: warm/dry Lymphatic: no adenopathy Extremities: normal range of motion Neuro/Psych: no motor/sensory deficits, alert, other (MONTILLA), No motor weakness, No sensory deficit
--- NOTE | 2016-11-02 09:24 | PDINTPN ---
Health And Wellness Advisor Progress Note Assessment/Plan: Assessment/Plan: * Status post closed head injury-intercranial hemorrhage -continue ventriculostomy-clamped currently * Acute respiratory failure-resolved * Occipital skull fracture * Syncopal episode-unclear etiology -echo normal * Mental status-awake and alert today. * Nutrition-none currently * PT OT Case discussed with family and nursing. Subjective: Awake and alert. Conversant. States pain is tolerable Objective: Vital Signs Temp Pulse Resp BP Pulse Ox 37 C 51 L 13 106/81 H 93 11/02/16 08:00 11/02/16 09:00 11/02/16 09:00 11/02/16 09:00 11/02/16 09:00 Laboratory Results 11/02/16 04:18 11/01/16 04:13 11/01/16 11/02/16 11/03/16 05:59 05:59 05:59 Intake Total 2692 1081 Output Total 2420 2856 271 Balance 272 -1775 -271 PT 13.0 SEC (12.0-15.0) 10/29/16 21:00 INR 0.99 (0.83-1.16) 10/29/16 21:00 Physical Exam - Physical Exam General Appearance: WD/WN, alert, no apparent distress EENT: PERRL/EOMI, other (Ventriculostomy) Neck: non-tender, full range of motion, supple, normal inspection Respiratory: chest non-tender, lungs clear, normal breath sounds Cardiac/Chest: normal peripheral pulses, regular rate, rhythm Peripheral Pulses: 2+: carotid (R), carotid (L), femoral (R), femoral (L), dorsalis-pedis (R), dorsalis-pedis (L) Abdomen: normal bowel sounds, non-tender, soft Pelvic Exam: deferred Rectal: deferred Skin: normal color, warm/dry Extremities: normal range of motion, non-tender, normal inspection, normal capillary refill Neuro/Psych: alert ICD10 Worksheet Patient Problems: Problems Problem Status Onset Fall from skateboard, initial encounter Acute Intracranial hemorrhage Acute Subdural hemorrhage Acute
[2016-11-02] MEDS: oxyCODONE IR 5 MG TAB PO PRN ×4 (10:11→21:28)
--- NOTE | 2016-11-02 16:24 | HOSPPROG ---
Hospitalist Progress Note Assessment/Plan: 21 yo F w SDH from skateboard fall ?syncope: reportrs of fall suggest she may have lost consciousness prior to fall. her lack of hand abrasions suggests as well tele w marked sinus arrhythmia but no pauses of svt, etc no FH sudden continue telemetry while here outpt quality assurance monitor if recurrent syncope SDH: drain capped continue seizure prophylaxis w keppra pain: well controlled constipation: add miralax if no bm by AM Subjective: case d/w julio cesra green, abby, mino. tele: interp by me. no pauses Objective: Vital Signs Temp Pulse Resp BP Pulse Ox 37 C 54 L 13 123/83 H 94 11/02/16 08:00 11/02/16 16:00 11/02/16 16:00 11/02/16 16:00 11/02/16 16:00 Laboratory Results 11/02/16 04:18 11/01/16 04:13 11/01/16 11/02/16 11/03/16 05:59 05:59 05:59 Intake Total 2692 1081 Output Total 2420 2856 271 Balance 272 -1775 -271 PT 13.0 SEC (12.0-15.0) 10/29/16 21:00 INR 0.99 (0.83-1.16) 10/29/16 21:00 - Physical Exam Constitutional: no apparent distress, appears nourished Eyes: PERRL, anicteric sclera Ears, Nose, Mouth, Throat: moist mucous membranes, hearing normal Cardiovascular: regular rate and rhythym, no murmur, rub, or gallop, No systolic murmur, No irregularly irregular, No diastolic murmur Respiratory: no respiratory distress, no rales or rhonchi Gastrointestinal: normoactive bowel sounds, soft, non-tender abdomen Genitourinary: no bladder fullness Skin: warm, normal color Musculoskeletal: full muscle strength Neurologic: AAOx3 Psychiatric: interacting appropriately, not anxious ICD10 Worksheet Patient Problems: Problems Problem Status Onset Fall from skateboard, initial encounter Acute Intracranial hemorrhage Acute Subdural hemorrhage Acute
[2016-11-03] MEDS: ACETAMINOPHEN 325 MG TAB PO PRN ×3 (02:46→16:59)
[2016-11-03] MEDS: oxyCODONE IR 5 MG TAB PO PRN ×5 (02:46→21:18)
--- NOTE | 2016-11-03 07:41 | TRAUMAPN ---
- Problem/Surgery Performed (1) Intracranial hemorrhage Assessment/Plan: skateboarder fall unhelmeted. Decline in mental status on admission ventriculostomy and sedation x 24 hr. subdural SAH ICH right frontal and temporal lobes stable Ventriculostomy clamped since yesterday. Likely d/c today await neurosurgery decision C/O headache Keppra Concussion protocols (2) Subdural hemorrhage Assessment/Plan: as with CHI Assessment/Plan: 20 yo s/p fall with skateboarding. ventriculostomy per NS likely d/c ventric today Objective: Vital Signs Temp Pulse Resp BP Pulse Ox 36.9 C 56 L 13 119/70 92 11/03/16 04:00 11/03/16 06:00 11/03/16 06:00 11/03/16 06:00 11/03/16 06:00 Laboratory Results 11/02/16 04:18 11/01/16 04:13 11/02/16 11/03/16 11/04/16 05:59 05:59 05:59 Intake Total 1081 1500 Output Total 2856 271 Balance -1775 1229 PT 13.0 SEC (12.0-15.0) 10/29/16 21:00 INR 0.99 (0.83-1.16) 10/29/16 21:00 EOMI AA&O RRR CTA LOPEZ 5/5 rom/ms b/l ue and le abd soft nt nd abrasions healing - C-Spine Clearance Cervical Spine Cleared: Yes
[2016-11-03] MEDS: SENNOSIDES/DOCUSATE SODIUM TAB PO SCH ×2 (08:08→21:19)
[2016-11-03] MEDS: POLYETHYLENE GLYCOL 3350 17 GM PKT PO PRN (08:08)
[2016-11-03] MEDS: BACITRACIN ZINC 14.2 GM OINTTUBE TP SCH ×2 (08:09→21:20)
[2016-11-03] MEDS: levETIRAcetam 500 MG TAB PO SCH ×2 (08:09→21:19)
[2016-11-03] MEDS: FAMOTIDINE 20 MG TAB PO SCH ×2 (08:09→21:19)
--- NOTE | 2016-11-03 08:52 | PDINTPN ---
Lining Ironer Progress Note Assessment/Plan: Assessment/Plan: * Status post closed head injury-intercranial hemorrhage -ventriculostomy removed * Acute respiratory failure-resolved * Occipital skull fracture * Possible Syncopal episode-unclear etiology, however most likely not syncope and mechanical fall -echo normal * Mental status-awake and alert today. * Nutrition-none currently * PT OT Case discussed with family and nursing. Subjective: Awake and alert. Comfortable. Headache is minimal. Objective: Vital Signs Temp Pulse Resp BP Pulse Ox 36.9 C 56 L 13 119/70 92 11/03/16 04:00 11/03/16 06:00 11/03/16 06:00 11/03/16 06:00 11/03/16 06:00 Laboratory Results 11/02/16 04:18 11/01/16 04:13 11/02/16 11/03/16 11/04/16 05:59 05:59 05:59 Intake Total 1081 1500 Output Total 2856 271 Balance -1775 1229 PT 13.0 SEC (12.0-15.0) 10/29/16 21:00 INR 0.99 (0.83-1.16) 10/29/16 21:00 Physical Exam - Physical Exam General Appearance: alert, no apparent distress EENT: PERRL/EOMI, normal ENT inspection Neck: non-tender, full range of motion, supple, normal inspection Respiratory: chest non-tender, lungs clear, normal breath sounds Cardiac/Chest: normal peripheral pulses, regular rate, rhythm Peripheral Pulses: 2+: carotid (R), carotid (L), femoral (R), femoral (L), dorsalis-pedis (R), dorsalis-pedis (L) Abdomen: normal bowel sounds, non-tender, soft Pelvic Exam: deferred Rectal: deferred Skin: normal color, warm/dry Extremities: normal range of motion, non-tender, normal inspection, normal capillary refill Neuro/Psych: no motor/sensory deficits, alert, normal mood/affect, oriented x 3 ICD10 Worksheet Patient Problems: Problems Problem Status Onset Fall from skateboard, initial encounter Acute Intracranial hemorrhage Acute Subdural hemorrhage Acute
[2016-11-03] MEDS ORDERED: NORGESTIMATE ETHINYL ESTRADIOL PO SCH ×2 (09:00)
[2016-11-03] MEDS: CITALOPRAM 20 MG TAB PO SCH (09:30)
--- NOTE | 2016-11-03 09:45 | HOSPPROG ---
Hospitalist Progress Note Assessment/Plan: 21 yo F w SDH from skateboard fall ?syncope: reports of fall suggest she may have lost consciousness prior to fall. 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 tele- sinus arrhythmia (interp by me) . case d/w dr mora Objective: Vital Signs Temp Pulse Resp BP Pulse Ox 36.8 C 56 L 12 119/70 92 11/03/16 08:00 11/03/16 08:00 11/03/16 08:00 11/03/16 06:00 11/03/16 08:00 Laboratory Results 11/02/16 04:18 11/01/16 04:13 11/02/16 11/03/16 11/04/16 05:59 05:59 05:59 Intake Total 1081 1500 Output Total 2856 271 Balance -1775 1229 PT 13.0 SEC (12.0-15.0) 10/29/16 21:00 INR 0.99 (0.83-1.16) 10/29/16 21:00 - Physical Exam Constitutional: no apparent distress, appears nourished Eyes: PERRL, anicteric sclera Ears, Nose, Mouth, Throat: moist mucous membranes, hearing normal Cardiovascular: regular rate and rhythym, no murmur, rub, or gallop Respiratory: no respiratory distress, no rales or rhonchi Gastrointestinal: normoactive bowel sounds, soft, non-tender abdomen Genitourinary: No hahn in urethra Skin: warm, normal color Musculoskeletal: full muscle strength, no muscle tenderness Neurologic: AAOx3, sensation intact bilaterally Psychiatric: interacting appropriately, not anxious Lymph, Heme, Immunologic: no cervical LAD ICD10 Worksheet Patient Problems: Problems Problem Status Onset Fall from skateboard, initial encounter Acute Intracranial hemorrhage Acute Subdural hemorrhage Acute
--- NOTE | 2016-11-03 10:20 | NEUSURGPN ---
Assessment/Plan: Assessment: 20 y/o with CHI, small SDH, small contusions and decline in mental status in ED. Ventriculostomy placed Plan: -currently awake and alert. doing well -Ventric clamped last 24 hours, pt tolerated well. EVD removed this AM pt tolerated well. -OK for SDU status Q2 hours neuro checks -PT/OT/STOCK RAISER, encourage up and OOB -Pt D/w Dr Coelho -call for change in neuro status -Possible transfer to floor later today if doing well Subjective: Pt resting in bed, family at bedside. Feeling ok. Objective: AAOx3 NAD VSS MAEx4 No droop +LT Urinary Catheter in Place: No Catheter Insertion Date: 10/30/16 - Physician Discussed Patient with : [facility] Physical Exam - Vitals, I&O, Labs I and O 11/02/16 11/03/16 11/04/16 05:59 05:59 05:59 Intake Total 1081 1500 Output Total 2856 271 Balance -1775 1229 Intake: Oral (ml) 670 1500 IV Infused (ml) 411 Ns 1,000 ml @ 100 mls/hr 411 IV CONT JIMMY Rx#: [id number] Output: Urine (ml) 2700 250 Bedside Commode 2050 250 Catheter 400 Toilet 250 CSF Drainage Amount 156 21 Right Ventriculostomy 156 21 Other: Number of Voids Toilet 1 1 Vital Signs Temp Pulse Resp BP Pulse Ox 36.8 C 54 L 11 L 132/82 H 94 11/03/16 08:00 11/03/16 10:00 11/03/16 10:00 11/03/16 10:00 11/03/16 10:00 Laboratory Results 11/02/16 04:18 11/01/16 04:13 ICD10 Worksheet Patient Problems: Problems Problem Status Onset Fall from skateboard, initial encounter Acute Intracranial hemorrhage Acute Subdural hemorrhage Acute
[2016-11-03] MEDS: ONDANSETRON 4 MG/2 ML VIAL IVP PRN (16:59)
[2016-11-04] MEDS: ACETAMINOPHEN 325 MG TAB PO PRN ×4 (00:09→19:53)
[2016-11-04] MEDS: oxyCODONE IR 5 MG TAB PO PRN ×5 (02:22→21:37)
--- NOTE | 2016-11-04 07:59 | SOAPPROG ---
SOAP Progress Note Assessment/Plan: Assessment: 20 F WITH SKULL FX AND SUBDURAL WITH NO OTHER INJURIES/ VENTRIC WITH MINIMAL DRAINAGE VS STABLE/ AFEBRILE/ NEURO INTACT Plan:PER NS 11/04/16 07:58 Objective: Vital Signs Temp Pulse Resp BP Pulse Ox 36.9 C 52 L 18 111/56 L 92 11/04/16 04:00 11/04/16 04:00 11/04/16 04:00 11/04/16 04:00 11/04/16 04:00 Laboratory Results 11/02/16 04:18 11/01/16 04:13 11/03/16 11/04/16 11/05/16 05:59 05:59 05:59 Intake Total 1500 1950 Output Total 271 Balance 1229 1950 PT 13.0 SEC (12.0-15.0) 10/29/16 21:00 INR 0.99 (0.83-1.16) 10/29/16 21:00 ICD10 Worksheet Patient Problems: Problems Problem Status Onset Fall from skateboard, initial encounter Acute Intracranial hemorrhage Acute Subdural hemorrhage Acute
[2016-11-04] MEDS: levETIRAcetam 500 MG TAB PO SCH ×2 (08:07→19:54)
[2016-11-04] MEDS: SENNOSIDES/DOCUSATE SODIUM TAB PO SCH ×2 (08:07→19:53)
[2016-11-04] MEDS: FAMOTIDINE 20 MG TAB PO SCH ×2 (08:08→19:53)
[2016-11-04] MEDS: CITALOPRAM 20 MG TAB PO SCH (08:08)
[2016-11-04] MEDS: BACITRACIN ZINC 14.2 GM OINTTUBE TP SCH ×2 (08:09→19:55)
--- NOTE | 2016-11-04 09:53 | PDINTPN ---
Lathing Supervisor Progress Note Assessment/Plan: Assessment/Plan: * Status post closed head injury-intercranial hemorrhage -ventriculostomy removed * Acute respiratory failure-resolved * Occipital skull fracture * Mental status-awake and alert today. * Nutrition-none currently * PT OT * Disposition-okay for transfer to floor Case discussed with family and nursing. Subjective: Was up ambulating with nursing. Still with some headache. But awake and alert and oriented x3 Objective: Vital Signs Temp Pulse Resp BP Pulse Ox 36.7 C 61 16 125/85 H 96 11/04/16 08:00 11/04/16 08:00 11/04/16 08:00 11/04/16 08:00 11/04/16 08:00 Laboratory Results 11/02/16 04:18 11/01/16 04:13 11/03/16 11/04/16 11/05/16 05:59 05:59 05:59 Intake Total 1500 1950 Output Total 271 Balance 1229 1950 PT 13.0 SEC (12.0-15.0) 10/29/16 21:00 INR 0.99 (0.83-1.16) 10/29/16 21:00 Physical Exam - Physical Exam General Appearance: alert, no apparent distress EENT: PERRL/EOMI, normal ENT inspection Neck: non-tender, full range of motion, supple, normal inspection Respiratory: chest non-tender, lungs clear, normal breath sounds Cardiac/Chest: normal peripheral pulses, regular rate, rhythm Abdomen: normal bowel sounds, non-tender, soft Pelvic Exam: deferred Rectal: deferred Skin: normal color, warm/dry Extremities: normal range of motion, non-tender, normal inspection, normal capillary refill Neuro/Psych: no motor/sensory deficits, alert, normal mood/affect, oriented x 3 ICD10 Worksheet Patient Problems: Problems Problem Status Onset Fall from skateboard, initial encounter Acute Intracranial hemorrhage Acute Subdural hemorrhage Acute
--- NOTE | 2016-11-04 12:03 | NEUSURGPN ---
Assessment/Plan: Assessment: 20 y/o with CHI, small SDH, small contusions and decline in mental status in ED. Ventriculostomy placed. Removed 11/03. Plan: -currently awake and alert. doing well. Has mild headache. -Ventric removed 11/03. Doing well -OK for floot status and q4 hour neuro checks -PT/OT/JUNIOR ACCOUNT MANAGER, encourage up and OOB -Pt D/w Dr Coelho -call for change in neuro status -Possible discharge home tomorrow if still doing well and passes therapies Subjective: Pt resting in bed. States she has mild headache but tolerable. Denies nausea/ vomiting. Has been up with PT. Eating, drinking, voiding well. Objective: AAOx3, NAD, VSS CN II-XII grossly intact No droop Negative pronator drift MAEx4 10/06 +LT Catheter Insertion Date: 10/30/16 - Physician Discussed Patient with : [facility] Physical Exam - Vitals, I&O, Labs I and O 11/03/16 11/04/16 11/05/16 05:59 05:59 05:59 Intake Total 1500 1950 Output Total 271 Balance 1229 1950 Intake: Oral (ml) 1500 1950 Output: Urine (ml) 250 Bedside Commode 250 CSF Drainage Amount 21 Right Ventriculostomy 21 Other: Number of Voids Toilet 1 3 Vital Signs Temp Pulse Resp BP Pulse Ox 35.5 C L 52 L 16 122/60 H 100 11/04/16 11:50 11/04/16 11:50 11/04/16 08:00 11/04/16 11:50 11/04/16 11:50 Laboratory Results 11/02/16 04:18 11/01/16 04:13 ICD10 Worksheet Patient Problems: Problems Problem Status Onset Fall from skateboard, initial encounter Acute Intracranial hemorrhage Acute Subdural hemorrhage Acute
[2016-11-04] MEDS ORDERED: ONDANSETRON DISINTEGRATING 4 MG TAB ONE (14:22)
[2016-11-04] MEDS: ONDANSETRON DISINTEGRATING 4 MG TAB PO PRN ×2 (14:25→21:37)
[2016-11-04] MEDS: BISACODYL 10 MG SUPP PR PRN (17:30)
[2016-11-04] MEDS: POLYETHYLENE GLYCOL 3350 17 GM PKT PO PRN (18:31)
[2016-11-04] MEDS: METHOCARBAMOL 750 MG TAB PO PRN (19:53)
[2016-11-04] MEDS: DIAZEPAM 5 MG TAB PO PRN (23:24)
[2016-11-05] MEDS: oxyCODONE IR 5 MG TAB PO PRN ×4 (01:39→20:59)
[2016-11-05] MEDS: METHOCARBAMOL 750 MG TAB PO PRN ×4 (01:39→20:58)
[2016-11-05] MEDS: ONDANSETRON DISINTEGRATING 4 MG TAB PO PRN (03:19)
[2016-11-05] MEDS: ACETAMINOPHEN 325 MG TAB PO PRN ×3 (03:19→20:58)
[2016-11-05] MEDS: levETIRAcetam 500 MG TAB PO SCH ×2 (08:45→20:59)
[2016-11-05] MEDS: FAMOTIDINE 20 MG TAB PO SCH ×2 (08:45→20:59)
[2016-11-05] MEDS: SENNOSIDES/DOCUSATE SODIUM TAB PO SCH ×2 (08:45→21:03)
[2016-11-05] MEDS: CITALOPRAM 20 MG TAB PO SCH (08:46)
[2016-11-05] MEDS: BACITRACIN ZINC 14.2 GM OINTTUBE TP SCH ×2 (08:46→21:13)
[2016-11-05] MEDS: DIAZEPAM 5 MG TAB PO PRN (08:54)
[2016-11-05] MEDS ORDERED: IBUPROFEN 200 MG TAB PO PRN (10:38)
--- NOTE | 2016-11-05 10:41 | NEUSURGPN ---
Assessment/Plan: Assessment: 20 y/o with CHI, small SDH, small contusions and decline in mental status in ED. Ventriculostomy placed. Removed 11/03. Plan: -currently awake and alert. doing well. Has mild headache and complaining mostly of pelvic/sacral pain from fall -Optimize pain management- added ibuprofen to scheduled medications to help with muscular pain and headache -OK for floot status and q4 hour neuro checks -PT/OT/CRAWLER CRANE OPERATOR, encourage up and OOB -Pt D/w Dr Coelho -call for change in neuro status -Dispo- Should go home tomorrow if passes therapies, muscular pain better Subjective: Pt resting in bed. States she had a horrible night with sacral/pelvic pain from fall. Also had some issues with nausea. Objective: AAOx3, NAD, VSS CN II-XII grossly intact No droop Negative pronator drift MAEx4 / +LT Catheter Insertion Date: 10/30/16 - Physician Discussed Patient with Dr.: Coelho Neurosurgery Physical Exam - Vitals, I&O, Labs I and O 11/04/16 11/05/16 11/06/16 05:59 05:59 05:59 Intake Total 1950 Balance 1950 Intake: Oral (ml) 1950 Other: Intake Quantity Yes Sufficient Number of Voids Toilet 3 1 Vital Signs Temp Pulse Resp BP Pulse Ox 36.8 C 68 16 139/75 H 97 11/05/16 08:42 11/05/16 08:42 11/05/16 08:42 11/05/16 08:42 11/05/16 08:42 Laboratory Results 11/02/16 04:18 11/01/16 04:13 ICD10 Worksheet Patient Problems: Problems Problem Status Onset Fall from skateboard, initial encounter Acute Intracranial hemorrhage Acute Subdural hemorrhage Acute
[2016-11-05] MEDS ORDERED: MAGNESIUM CITRATE 300 ML BOTTLE PO PRN (10:42)
--- NOTE | 2016-11-05 10:44 | SOAPPROG ---
SOAP Progress Note Assessment/Plan: Assessment: 20 F WITH SKULL FX AND SUBDURAL WITH NO OTHER INJURIES/ VENTRIC WITH MINIMAL DRAINAGE VS STABLE/ AFEBRILE/ NEURO INTACT Plan:PER NS 11/04/16 07:58 11/05/16 10:44 pt transferred to neurosurgery yesterday Objective: Vital Signs Temp Pulse Resp BP Pulse Ox 36.8 C 68 16 139/75 H 97 11/05/16 08:42 11/05/16 08:42 11/05/16 08:42 11/05/16 08:42 11/05/16 08:42 Laboratory Results 11/02/16 04:18 11/01/16 04:13 11/04/16 11/05/16 11/06/16 05:59 05:59 05:59 Intake Total 1950 Balance 1950 PT 13.0 SEC (12.0-15.0) 10/29/16 21:00 INR 0.99 (0.83-1.16) 10/29/16 21:00 ICD10 Worksheet Patient Problems: Problems Problem Status Onset Fall from skateboard, initial encounter Acute Intracranial hemorrhage Acute Subdural hemorrhage Acute
[2016-11-05] MEDS: BISACODYL 10 MG SUPP PR PRN (12:09)
[2016-11-05] MEDS ORDERED: methylPREDNISolone 4 MG TAB PO ONE (14:00)
[2016-11-05] MEDS: IBUPROFEN 600 MG TAB PO SCH ×2 (16:28→20:59)
[2016-11-05] MEDS ORDERED: methylPREDNISolone 4 MG TAB PO SCH ×2 (19:00→21:00)
[2016-11-06] MEDS: IBUPROFEN 600 MG TAB PO SCH ×3 (01:53→14:44)
[2016-11-06] MEDS: DIAZEPAM 5 MG TAB PO PRN (01:53)
[2016-11-06] MEDS: oxyCODONE IR 5 MG TAB PO PRN ×2 (01:53→13:36)
[2016-11-06] MEDS: SENNOSIDES/DOCUSATE SODIUM TAB PO SCH (09:00)
[2016-11-06] MEDS: FAMOTIDINE 20 MG TAB PO SCH (09:00)
[2016-11-06] MEDS: levETIRAcetam 500 MG TAB PO SCH (09:00)
[2016-11-06] MEDS: BACITRACIN ZINC 14.2 GM OINTTUBE TP SCH (09:00)
[2016-11-06] MEDS: CITALOPRAM 20 MG TAB PO SCH (09:00)
[2016-11-06] MEDS: methylPREDNISolone 4 MG TAB PO SCH ×2 (10:00→13:35)
[2016-11-06 11:28] VITALS: BP 128/63; PULSE 58; RESP 16; TEMP 97.9; O2SAT 90
--- NOTE | 2016-11-06 13:10 | NEUSURGPN ---
Assessment/Plan: Assessment: 20 y/o with CHI, small SDH, small contusions and decline in mental status in ED. Ventriculostomy placed. Removed 11/03. Plan: -currently awake and alert. doing well. Has mild headache and complaining mostly of pelvic/sacral pain from fall- improved with medrol dose pack -Optimize pain management- added ibuprofen to scheduled medications to help with muscular pain and headache -OK for floot status and q4 hour neuro checks -PT/OT/BARREL ROLLER, encourage up and OOB -Pt D/w Dr Coelho -call for change in neuro status -Dispo- Discharge hoem today with follow up with Dr. Coelho in 2 weeks Subjective: Pt resting in bed. States she feels better after starting steroids yesterday. Ready to go home. Objective: AAOx3, NAD, VSS CN II-XII grossly intact No droop Negative pronator drift MAEx4 10/06 +LT Catheter Insertion Date: 10/30/16 - Physician Discussed Patient with Dr.: Coelho Neurosurgery Physical Exam - Vitals, I&O, Labs I and O 11/05/16 11/06/16 11/07/16 05:59 05:59 05:59 Other: Intake Quantity Yes Sufficient Number of Voids Toilet 1 1 Vital Signs Temp Pulse Resp BP Pulse Ox 36.6 C 58 L 16 128/63 H 90 L 11/06/16 08:00 11/06/16 08:00 11/06/16 08:00 11/06/16 08:00 11/06/16 08:00 Laboratory Results 11/02/16 04:18 11/01/16 04:13 ICD10 Worksheet Patient Problems: Problems Problem Status Onset Fall from skateboard, initial encounter Acute Intracranial hemorrhage Acute Subdural hemorrhage Acute
--- NOTE | 2016-11-06 13:20 | PDIAF ---
- Diagnosis Code Status: Full Code - Medication Management Discharge Medications: Medications to Continue on Transfer Norgestimate-Ethinyl Estradiol [Sprintec 28 Day Tablet] 1 each PO DAILY [Last Taken Unknown] Diazepam [Valium 5 MG (*)] 5 - 10 mg PO Q6HRS PRN #0 tab 11/06/16 [Last Taken Unknown] Ibuprofen [Motrin (*)] 600 mg PO Q6H #0 tab 11/06/16 [Last Taken Unknown] Ondansetron Odt [Zofran Odt 4 mg (*)] 4 mg PO Q6 PRN #0 tab 11/06/16 [Last Taken Unknown] Polyethylene Glycol 3350 [Miralax 17 gm (*)] 17 gm PO DAILY PRN #0 pkt 11/06/16 [Last Taken Unknown] levETIRAcetam [Keppra 500 mg (*)] 500 mg PO BID #0 tab 11/06/16 [Last Taken Unknown] methylPREDNISolone [Medrol 4mg (*)] 4 mg PO 0730 #0 tab 11/06/16 [Last Taken Unknown] Discharge Medications: Refer to the Discharge Home Medication list for PRN reason. - Orders Services needed: Home Care, Speech Language Pathologist (Cognitive Therapy) Home Care Face to Face: I certify that this patient was under my care and that I had the required [id number] encounter meeting the encounter requirements on the discharge day. My findings support the fact that the patient is homebound as defined in CMS Chapter 7 Medicare Benefits Manual 30.1.1, The condition of the patient is such that there exists a normal inability to leave home and consequently, leaving home would require a considerable and taxing effort. Diet Texture: Regular Texture Diet, Thin Liquids, Meds Whole w/Liquids Raul Stockings Discontinue Date: Can be dc'd Wound Care Instructions: none- bacitracin if needed on ventriculostomy site Activity/Weight Bearing Restrictions: activity as tolerated. Go to the ER if you have intractable headaches, excessive vomiting, weakness, slurred speech. Keep with low stimulation activities, rest when tired, up walking as tolerated. If symptomatic, stop - Follow Up Care Current Providers and Referrals: Quintin Coelho MD [Medical Doctor] - (CALL [facility] FOR APPOINTMENT) Rey Pelaez MD [Medical Doctor] - (NO NEED TO FOLLOW UP IN OFFICE. CALL FOR ISSUES APART FROM NEUROSURGERY) Patient,NotPresent [Primary Care Provider] - As per Instructions
[2016-11-06] MEDS: ONDANSETRON DISINTEGRATING 4 MG TAB PO PRN (14:43)
[2016-11-06] MEDS: METHOCARBAMOL 750 MG TAB PO PRN (14:44)
[2016-11-06] MEDS ORDERED: methylPREDNISolone 4 MG TAB PO SCH (21:00)
[2016-11-07] MEDS ORDERED: methylPREDNISolone 4 MG TAB PO SCH (07:30)
[2016-11-08] MEDS ORDERED: methylPREDNISolone 4 MG TAB PO SCH (07:30)
[2016-11-09] MEDS ORDERED: methylPREDNISolone 4 MG TAB PO SCH (07:30)
[2016-11-10] MEDS ORDERED: methylPREDNISolone 4 MG TAB PO SCH (07:30)
== END 2016-11-06 15:11 | disposition home or self-care (01) | DRG 23 ==
LOC: EDBD 20:35 → OBSVTOIN 23:15 → F2N 10-30 00:24 → F3N 11-04 12:16
PROVIDERS: ADMIT Surgery; ATTEND Surgery
PROC: 0BH17EZ Insertion of Endotracheal Airway into Trachea, Via Natural or Artificial Opening (ICD-10-PCS; 2016-10-29)
PROC: 5A1935Z Respiratory Ventilation, Less than 24 Consecutive Hours (ICD-10-PCS; 2016-10-29)
PROC: 009600Z Drainage of Cerebral Ventricle with Drainage Device, Open Approach (ICD-10-PCS; principal; 2016-10-30)
DX: S06.6X9A Traumatic subarachnoid hemorrhage with loss of consciousness of unspecified duration, initial encounter (principal); J96.00 Acute respiratory failure, unspecified whether with hypoxia or hypercapnia; S06.5X9A Traumatic subdural hemorrhage with loss of consciousness of unspecified duration, initial encounter; S02.0XXA Fracture of vault of skull, initial encounter for closed fracture; S40.211A Abrasion of right shoulder, initial encounter; S40.212A Abrasion of left shoulder, initial encounter; R56.9 Unspecified convulsions; F32.9 Major depressive disorder, single episode, unspecified; R00.2 Palpitations; M54.5 Low back pain; R40.2411 Glasgow coma scale score 13-15, in the field [EMT or ambulance]; V00.131A Fall from skateboard, initial encounter; Y93.51 Activity, roller skating (inline) and skateboarding; Y92.838 Other recreation area as the place of occurrence of the external cause
CPT/HCPCS: 92507-GN; 92523-GN; 96374; 97116-GP; 97161-GP; 97165-GO; 97532-GO; 97535-GO; G0480; J0330; J1953; J2405; J2704; J3010

== ENCOUNTER 2017-03-27 06:17 | Emergency (ER) | payer OTHER ==
[2017-03-27 06:24] VITALS: BP 133/89; PULSE 84; RESP 16; TEMP 98.8; O2SAT 97
[2017-03-27] MEDS ORDERED: NITROFURANTOIN MACROBID 100 MG CAP PO ONE (06:46)
[2017-03-27] MEDS ORDERED: PHENAZOPYRIDINE HCL 200 MG TAB PO ONE (06:46)
[2017-03-27] MEDS ORDERED: NITROFURANTOIN 100MG PREPACK#2 BTL TAKEHOME ONE (06:46)
--- NOTE | 2017-03-27 06:48 | EDPHY ---
H & P Stated Complaint: hematuria, dysuria, abd pain Time Seen by Provider: 03/27/17 06:28 HPI/ROS: HPI The patient presents with dysuria, urgency, frequency, hematuria which have been present for the last 2 days. She does not have any back pain, fever, vomiting. She has history of frequent urinary tract infection.. REVIEW OF SYSTEMS Constitutional: No fever, no chills. Eyes: No discharge. ENT: No sore throat. Cardiovascular: No chest pain, no palpitations. Respiratory: No cough, no shortness of breath. Gastrointestinal: No abdominal pain, no vomiting. Genitourinary: Positive for hematuria. Musculoskeletal: No back pain. Skin: No rashes. Neurological: No headache. PMHx: History of UTIs Soc Hx: college student PHYSICAL General Appearance: Alert, no distress Eyes: Pupils equal and round no pallor or injection ENT, Mouth: Mucous membranes moist Respiratory: There are no retractions, lungs are clear to auscultation Cardiovascular: Regular rate and rhythm Gastrointestinal: Abdomen is soft and with mild suprapubic tenderness, no masses, bowel sounds normal Neurological: A&O, moves all extremities Skin: Warm and dry, no rashes Musculoskeletal: Neck is supple non tender Extremities: symmetrical, full range of motion Psychiatric: Patient is oriented X 3, there is no agitation Source: Patient Exam Limitations: No limitations - Personal History LMP (Females 10-55): Over 28 Days Ago Current Tetanus/Diphtheria Vaccine: Unsure - Medical/Surgical History Hx Asthma: No Hx Chronic Respiratory Disease: No Hx Diabetes: No Hx Cardiac Disease: No Hx Renal Disease: No Hx Cirrhosis: No Hx Alcoholism: No Hx HIV/AIDS: No Hx Splenectomy or Spleen Trauma: No Other PMH: PMHx: anxiety, TBI. PSHx: natalie hole - Social History Smoking Status: Never smoked Constitutional: Initial Vital Signs Temperature (C) 37.1 C 03/27/17 06:21 Heart Rate 84 03/27/17 06:21 Respiratory Rate 16 03/27/17 06:21 Blood Pressure 133/89 H 03/27/17 06:21 O2 Sat (%) 97 03/27/17 06:21 O2 Delivery Mode Room Air Allergies/Adverse Reactions: No Known Allergies Allergy (Unverified 10/29/16 22:19) Home Medications: Medication Instructions Recorded Norgestimate-Ethinyl Estradiol 1 each PO DAILY 10/30/16 [Sprintec 28 Day Tablet] Citalopram Hydrobromide [Celexa] 03/27/17 Nitrofurantoin Monohyd/M-Cryst 100 mg PO BID #10 capsule 03/27/17 [Macrobid 100 mg Capsule] Burns 5/325 (*) 03/27/17 Phenazopyridine HCl [Pyridium] 200 mg PO TID #6 tab 03/27/17 Medical Decision Making Differential Diagnosis: 21-year-old female with irritative voiding symptoms and suprapubic discomfort for the last 2 days. History of urinary tract infection and this feels similar. I will treat her with Macrobid and Pyridium. I have discussed return precautions for pyelonephritis. She will be discharged in good condition. Other considerations include ureterolithiasis and pyelonephritis. - Data Points Laboratory Results: 03/27/17 06:40 Urine Color Pending Urine Appearance Pending Urine pH Pending Ur Specific [place] Pending Urine Protein Pending Urine Ketones Pending Urine Blood Pending Urine Nitrate Pending Urine Bilirubin Pending Urine Urobilinogen Pending Ur Leukocyte Esterase Pending Urine Glucose Pending Departure - Departure Disposition: Home, Routine, Self-Care Clinical Impression: Urinary tract infection Qualifiers: Urinary tract infection type: acute cystitis Hematuria presence: with hematuria Qualified Code(s): N30.01 - Acute cystitis with hematuria Condition: Good Instructions: Urinary Tract Infection in Women (ED) Additional Instructions: Please make sure to drink plenty of fluids. You should take the medication as prescribed. You should return to the emergency department if your worse in any way. Referrals: DR RADHA [Other] - As per Instructions Prescriptions: Nitrofurantoin Monohyd/M-Cryst [Macrobid 100 mg Capsule] 100 mg PO BID #10 capsule Phenazopyridine HCl [Pyridium] 200 mg PO TID #6 tab
[2017-03-27 07:50] LABS: COLOR AMBER; LEUKOCYTE ESTERASE,URINE 1+ (NEGATIVE); NITRITE,URINE NEGATIVE (NEGATIVE)
[2017-03-27 08:03] LABS: RBC,URINE 50-182 /hpf (0-3); WBC,URINE 50-182 /hpf (0-3)
== END 2017-03-27 06:58 | disposition home or self-care (01) ==
DX: N30.01 Acute cystitis with hematuria (principal); B96.20 Unspecified Escherichia coli [E. coli] as the cause of diseases classified elsewhere

== ENCOUNTER → 2018-06-28 | Outpatient (CLI) | payer OTHER ==
--- NOTE | 2018-07-01 10:46 | CPEEG ---
DATE OF STUDY: 06/28/2018 DATE OF INTERPRETATION: 07/01/2018. ORDERING PHYSICIAN: Dr. Roland Dai. INTERPRETATION: Normal EEG during wakefulness and sleep. There were no potentially epileptogenic ab normalities present during the recording. REPORT: This EEG contains 10 Hz alpha activity to the posterior head regions. There was no abnormal activation at rest or with photic stimulation or hyperventilation. The patient became drowsy and fe ll asleep during the study. There was no abnormal activation during drowsiness, sleep, or during betina es of arousal. Copy requested to: Roland Dai MD /[id number]/MODL
== END ==
LOC: FCPNEURO 14:52
PROVIDERS: ATTEND Psychiatry & Neurology Neurology
DX: R55 Syncope and collapse (principal); G43.909 Migraine, unspecified, not intractable, without status migrainosus; Z87.820 Personal history of traumatic brain injury